=== PATIENT | male | born 1950 | race Caucasian/White ===

== ENCOUNTER 2021-10-29 10:30 | Emergency (ER) | payer MEDICARE, OTHER, SELFPAY ==
[2021-10-29] VITALS (15 sets, daily range): BP systolic 127–162; BP diastolic 66–87; PULSE 55–71; RESP 10–18; TEMP 36.5–36.7; O2SAT 91–100; BMI 24.5
--- NOTE | 2021-10-29 10:40 | DI.RAD.S_ITS ---
PROCEDURE: XR CHEST 1V INDICATIONS: chest pain, fatigue TECHNIQUE: One view of the chest was acquired. COMPARISON: None. FINDINGS: Surgical changes and devices: None. Lungs and pleura: Lungs are clear. No pleural effusions or pneumothorax. Mediastinum: Mediastinal contours appear normal. Heart size is normal. Bones and chest wall: No suspicious bony lesions. Overlying soft tissues appear unremarkable. IMPRESSION: No acute cardiopulmonary findings Approved by: Pankaj Reid M.D. on 10/29/2021 at 10:29
--- NOTE | 2021-10-29 10:40 | DI.CT.S_ITS ---
PROCEDURE: CT HEAD/BRAIN WO CON INDICATIONS: facial, arm numbness, tingling TECHNIQUE: Noncontrast 4.5 mm thick angled axial sections acquired from the foramen magnum to the vertex, with coronal and sagittal reformats. For radiation dose reduction, the following was used: automated exposure control, adjustment of mA and/or kV according to patient size. COMPARISON: [facility], CT, HEAD WITHOUT CONTRAST, 07/08/2014, 18:21. FINDINGS: Image quality: Excellent. CSF spaces: Basal cisterns are patent. No extra-axial fluid collections. The ventricles are symmetric in size and shape. Brain: No intracranial bleeds or masses. There is cerebral volume loss for age, with resultant ventricular and sulcal prominence. There are periventricular and deep white matter chronic small vessel ischemic changes. There is intracranial internal carotid artery atherosclerosis. Skull and face: Calvarium and visualized facial bones appear intact, without suspicious lesions. Sinuses: Visualized sinuses and mastoids are clear. IMPRESSION: Mild atrophy and chronic ischemic change without acute hemorrhage or mass effect. Approved by: Pankaj Reid M.D. on 10/29/2021 at 10:42
[2021-10-29 10:51] LABS: Add Manual Diff / Slide Review NO; Basophils Absolute Auto 100 /uL (0-100); Basophils Percent Auto 1.1 % (0-2); Eosinophils Absolute Auto 200 /uL (0-450); Hematocrit 38.4 % (41-53); Hemoglobin 13.5 g/dL (13.5-17.5); Lymphocytes Absolute Auto 2200 /uL (1100-4500); Lymphocytes Percent Auto 28.5 % (25-40); Mean Corpuscular HGB Conc 35.3 % (30-36); Mean Corpuscular Volume 82.3 fL (80-100); Monocytes Absolute Auto 600 /uL (0-900); Monocytes Percent Auto 7.9 % (3-14); Neutrophils Absolute Auto 4700 /uL (1500-7000); Neutrophils Percent Auto 60.5 % (50-75); Platelet Count 194 X10^3/uL (150-400); Red Blood Cell Count 4.66 X10^6/uL (4.5-5.9); Red Cell Distribution Width 14.4 % (11.6-14.8); White Blood Cell Count 7.8 X10^3/uL (4.5-11.0)
[2021-10-29] MEDS: SODIUM CHLORIDE 0.9% 1,000 ML 150 ML IV (10:58)
[2021-10-29] MEDS: ASPIRIN 81 MG CHEW TAB 324 MG PO (10:58)
--- NOTE | 2021-10-29 11:04 | ED.CHESTPAIN ---
HPI - Chest Pain General Chief Complaint: Chest Pain Stated Complaint: blood pressure/rapid pulse/swelling in neck Time Seen by Provider: 10/29/21 10:35 Source: patient Mode of arrival: Ambulatory Limitations: no limitations History of Present Illness HPI narrative: 71-year-old male nonsmoker without chronic medical problems presents with a chief complaint of persistent chest pain for many days, some numbness and tingling across the right side of his chest, right lip and upper eyelid for least 1-2 days. He is not dizzy nor weak or lightheaded. He states that he has been having episodes of elevated blood pressure as high as the 180s with rapid drops into the 90s. He states that often when his blood pressure is low he becomes dizzy upon standing Related Data Previous Rx's Medication Instructions Recorded cephalexin 500 mg capsule (Keflex) 500 mg PO QID #20 cap 09/10/17 Allergies Allergy/AdvReac Type Severity Reaction Status Date / Time alcohol [ALCOHOL] Allergy Intermediate Unverified 02/21/18 12:29 Review of Systems Review of Systems Narrative: GENERAL: D see HPI. HEENT: Denies sinus pain, ear pain, sore throat, difficulty swallowing, dizziness. RESPIRATORY: Denies dyspnea, cough, wheezing, hemoptysis, sputum. CARDIOVASCULAR: See HPI a, GASTROINTESTINAL: Denies nausea, vomiting, abdominal pain, diarrhea, constipation, melena. : Denies dysuria, frequency, incontinence, hematuria, urinary retention. MUSCULOSKELETAL: denies weakness, joint pain, or bony pain SKIN: Denies rash, skin lesions, or other NEUROLOGIC: See HPI PSYCHIATRIC: No concerning psychosocial issues. 12 point review of systems is negative except for those stated above Patient History Social History Smoking Status: Never smoker Smoking Status: Never smoker alcohol intake frequency: 0-2 drinks per day Substance Use Type: marijuana Exam Narrative Exam Narrative: GENERAL: [71] year old patient appears stated age. Well-developed patient, in mild distress. HEAD: Atraumatic. Normocephalic. EYES: Pupils equal round and reactive. Extraocular motions intact. No scleral icterus. No injection or drainage. ENT: Nose without bleeding, purulent drainage. Throat without erythema, tonsillar hypertrophy or exudate. Airway patent. NECK: Trachea midline. Non tender CARDIOVASCULAR: Regular rate and rhythm without murmurs, gallops, or rubs. RESPIRATORY: Clear to auscultation. Breath sounds equal bilaterally. No wheezes, rales, or rhonchi. GASTROINTESTINAL: Abdomen soft, non-tender, nondistended. EXTREMITIES: No edema or joint tenderness. BACK: Nontender without deformity or crepitance. No flank tenderness. NEURO: AOx3. SKIN: No rash or erythema of visible areas NIH Stroke Scale 1a. LOC: Patient is alert and keenly responsive (0) 1b. LOC Questions: Patient answers both LOC questions accurately (0) 1c. LOC Commands: Patient performs both tasks correctly (0) 2. Best Gaze: Normal (0) 3. Visual: No visual loss (0) 4. Facial palsy: Normal symmetrical movements (0) 5. Motor arm: No drift (0) 6. Motor leg: No drift (0) 7. Limb ataxia: Absent (0) 8. Sensory: Normal (0) 9. Best language: No aphasia; normal (0) 10. Dysarthria: Normal (0) 11. Extinction and inattention: No abnormality (0) NIHSS: 0 Initial Vital Signs Initial Vital Signs: Vital Signs Temperature 98.1 F 10/29/21 10:35 Pulse Rate 67 10/29/21 10:35 Respiratory Rate 18 10/29/21 10:35 Blood Pressure 162/87 H 10/29/21 10:35 Pulse Oximetry 99 10/29/21 10:35 Course Orders Ordered: ED Orders 10/29/21 10:40 CT head/brain wo con Stat XR chest 1V Stat EKG-12 Lead Stat 10/29/21 10:45 Complete Blood Count AUTO DIFF Stat Comprehensive Metabolic Panel Stat D Dimer Stat Lipase Stat NT-proBNP (BNP-Adult 18+) Stat Prothrombin Time INR Stat Troponin & CK Cardiac Panel Stat 10/29/21 11:55 CT angio head and neck Stat Sodium Chloride (Normal Saline 0.9%) 1,000 mls @ 150 mls/hr IV CONT ALAN Last Admin: 10/29/21 10:58 Dose: 150 mls/hr Documented by: MJ Discontinued Medications Aspirin (Aspirin 81 Mg Chew Tab) 324 mg PO NOW ONE Stop: 10/29/21 10:41 Last Admin: 10/29/21 10:58 Dose: 324 mg Documented by: MJ Vital Signs Vital signs: Vital Signs - 8 hr 10/29/21 10:35 10/29/21 10:43 10/29/21 10:45 Temperature 98.1 F Pulse Rate 67 71 68 Respiratory Rate 18 14 Blood Pressure 162/87 H 134/66 Pulse Oximetry 99 99 100 10/29/21 11:06 10/29/21 11:15 10/29/21 11:30 Temperature Pulse Rate 66 62 59 L Respiratory Rate 12 13 Blood Pressure Pulse Oximetry 99 100 99 10/29/21 11:45 10/29/21 12:02 10/29/21 12:03 Temperature Pulse Rate 55 L 61 Respiratory Rate 14 17 Blood Pressure 141/86 H Pulse Oximetry 98 91 99 10/29/21 12:15 10/29/21 12:30 10/29/21 12:45 Temperature Pulse Rate 66 56 L 61 Respiratory Rate 10 L 15 15 Blood Pressure 139/83 135/82 139/87 Pulse Oximetry 100 99 99 10/29/21 13:00 10/29/21 13:15 10/29/21 13:16 Temperature 97.7 F Pulse Rate 58 L 63 Respiratory Rate 13 Blood Pressure 133/84 127/79 Pulse Oximetry 100 99 MDM - Chest Pain Lab Data Result diagrams: 10/29/21 10:45 10/29/21 10:45 Labs: Lab Results 10/29/21 10/29/21 10/29/21 Range/Units 10:45 10:45 10:45 WBC 7.8 (4.5-11.0) X10^3/uL RBC 4.66 (4.5-5.9) X10^6/uL Hgb 13.5 (13.5-17.5) g/dL Hct 38.4 L (41-53) % MCV 82.3 (80-100) fL MCH 29.0 (26-34) PG MCHC 35.3 (30-36) % RDW 14.4 (11.6-14.8) % Plt Count 194 (150-400) X10^3/uL Neut % (Auto) 60.5 (50-75) % Lymph % (Auto) 28.5 (25-40) % [place] % (Auto) 7.9 (3-14) % Eos % (Auto) 2.0 (2-4) % Baso % (Auto) 1.1 (0-2) % Neut # (Auto) 4700 (8524-0599) /uL Lymph # (Auto) 2200 (5573-7222) /uL [place] # (Auto) 600 (0-900) /uL Eos # (Auto) 200 (0-450) /uL Baso # (Auto) 100 (0-100) /uL PT 11.9 (10.1-12.7) SECONDS INR 1.1 (0.9-1.3) D-Dimer < 200 (<230) ng/mL Sodium 141 (137-145) mmol/L Potassium 3.6 (3.4-5.1) mmol/L Chloride 104 (98-107) mmol/L Carbon Dioxide 30 (22-32) mmol/L BUN 22 H (9-20) mg/dL Creatinine 1.12 (0.66-1.25) mg/dL Estimated GFR > 60.0 (>60) mL/min BUN/Creatinine Ratio 19.6 (6-22) Glucose 79 L (80-110) mg/dL Calcium 9.2 (8.4-10.2) mg/dL Total Bilirubin 0.6 (0.2-1.3) mg/dL AST 28 (17-59) IU/L ALT 20 (<50) IU/L Alkaline Phosphatase 61 (38-126) U/L Total Creatine Kinase 207 H (55-170) U/L CK-MB (CK-2) 2.45 H (<2.37) ng/mL CK-MB (CK-2) Rel Index 1.2 L (1.5-5.0) % Troponin I < 0.012 (0.01-0.034) ng/mL NT-Pro-B Natriuret Pep 59 (<125) pg/mL Total Protein 7.6 (6.3-8.2) g/dL Albumin 4.6 (3.5-5.0) g/dL Globulin 3.0 (1.7-4.1) g/dL Albumin/Globulin Ratio 1.5 (1.0-2.8) Lipase 83 (23-300) U/L Imaging Data Head / Neck: Radiologist's Impression: Launch?[address] [address] [address] Scan Report Signed Patient: Brandon Siu MR#: [id number] : 1950 Acct:[id number] Age/Sex: 71 / M Date of Service: 10/29/21 Loc: ED Accession Number: [id number] ?? Procedure: CT angio head and neck Ordering Provider: Austin Ramos D.O. PROCEDURE:? CT ANGIO HEAD AND NECK ? INDICATIONS:? right head, face, numbness and tingling, pain in right anter ? TECHNIQUE:? After the administration of intravenous contrast, 1 mm thick sections acquired from the aortic arch through the [place].? Post-contrast 4.5 mm thick sections then re-acquired from the foramen magnum to the vertex.? 3-dimensional aejvyci-fjygsndvt-zeytdoaced (MIP) and/or volume rendering reformats were acquired of the central intracranial vasculature and neck separately. ? COMPARISON:? None. ? FINDINGS:? Image quality:? Excellent.? ? BRAIN:? CSF spaces:? Ventricles are normal in size and shape.? Basal cisterns are patent.? No extra-axial fluid collections.? ? Brain:? No midline shift.? No intracranial bleeds or masses.? Verma-white matter interface appears intact.? ? Skull and face:? Calvarium and facial bones appear intact, without suspicious lesions.? Orbits appear normal.? ? Sinuses:? Sinuses and mastoids are clear.? ? HEAD CT ANGIOGRAPHY:? Anterior circulation:? Intracranial internal carotid arteries are normal in size and flow.? The flow within the paired anterior cerebral arteries is normal and symmetric.? The flow within the middle cerebral arteries is normal and symmetric.? The anterior communicating artery is seen.? No aneurysms are seen.? ? Posterior circulation:? Visualized portions of the vertebral arteries demonstrate normal caliber, and join to form a normal appearing basilar artery.? Flow within the posterior cerebral arteries is normal and symmetric.? No aneurysms are seen.? ? NECK CT ANGIOGRAPHY:? Carotid system:? The great vessels demonstrate a conventional anatomy as they arise from the aortic arch.? The origins of the common carotid arteries appear patent.? The common carotid arteries demonstrate normal caliber and courses.? The bifurcation regions are both widely patent.? The internal carotid arteries demonstrate normal calibers and courses.? ? Posterior circulation:? The origins of the vertebral arteries both appear widely patent.? The more superior extracranial portions of both vertebral arteries also demonstrate normal courses and calibers.? They join to form a normal appearing basilar artery.? ? Soft tissues:? Visualized neck soft tissues demonstrate no suspicious abnormalities.? ? Bones:? No suspicious bony lesions.? Visualized cervical spine appears normally aligned.? IMPRESSION:? No hemodynamically significant stenosis of the major intracranial or extracranial arterial circulation. ? Any quantitative measurements of stenosis were performed using NASCET criteria.? ? ? Dictated by: Abner Valera M.D. on 10/29/2021 at 13:01 ? ? Approved by: Abner Valera M.D. on 10/29/2021 at 13:04 ? MDM Narrative Medical decision making narrative: Multiple etiologies for patient's symptoms considered including: [Coronary artery disease, thought unlikely given lack of exertional provocation, radiation, nausea, vomiting, diaphoresis or other red flag symptoms. Additionally, EKG is nonischemic and troponin is unremarkable. Pulmonary embolism considered but thought unlikely given negative D-dimer, no imaging indicated. Patient asymptomatic for majority of visit. Stroke and intracranial hemorrhage are considered but thought unlikely given lack of ongoing symptoms or findings on imaging. It seems likely that his symptoms are related to fluctuations in his blood pressure, at times elevated at other times low. There is no indication for an antihypertensive approach at this point time. He shows no signs of sepsis or infection. Patient already has an appointment set up with his primary care provider later this week Patient's symptoms improved over duration of stay with above-stated therapies. Findings and discharge diagnosis discussed with patient/family followed by verbalization of understanding Return precautions discussed with patient/family whom verbalize understanding. Discharge Plan Departure Patient Disposition: Home Clinical Impression: Atypical chest pain, Dizziness Instructions: DI for Atypical Chest Pain, DI for Dizziness-Nonvertigo Activity Restrictions/Additional Instructions: *You have been diagnosed with [atypical chest pain and dizziness. Your history, physical exam, EKG, labs and imaging are very reassuring. There is no evidence of stroke, significant narrowing of carotids, heart attack or blood clot. *What to do: *Please continue to take your regular medications as directed. [ ] New medication prescriptions sent to your pharmacy: [ ] [ ] New medication written as a paper prescription [ x] No new medications given *Please follow up with your primary care provider in 2-3 days, call for an appointment. Let them know you were seen in the Emergency Department and that we ask that you be seen in follow up. We will electronically transmit a record of today's note if your PCP is in our system *If you do not have a primary care provider please contact the [facility] Resource line at [phone]. They will ask some questions about your medical history and help get you set up with a doctor in the community. *Return to Emergency Department if you should have any new, worsening or concerning symptoms, such as [fever greater than 101 F, shaking chills, worsening pain, persistent vomiting or other bothersome symptoms] Prescriptions: No Action cephalexin [Keflex] 500 MG capsule 500 mg PO QID Qty: 20 0RF Referrals: Devika Phoenix MD [Primary Care Provider] -
[2021-10-29 11:05] LABS: Alanine Aminotransferase 20 IU/L (<50); Albumin 4.6 g/dL (3.5-5.0); Albumin Globulin Ratio 1.5 (1.0-2.8); Alkaline Phosphatase 61 U/L (38-126); Aspartate Aminotransferase 28 IU/L (17-59); BUN Creatinine Ratio 19.6 (6-22); Bilirubin Total 0.6 mg/dL (0.2-1.3); Blood Urea Nitrogen 22 mg/dL (9-20); Calcium 9.2 mg/dL (8.4-10.2); Carbon Dioxide 30 mmol/L (22-32); Chloride 104 mmol/L (98-107); Creatine Kinase 207 U/L (55-170); Estimated Glomerular Filt Rate > 60.0 mL/min (>60); Glucose 79 mg/dL (80-110); HEMOLYSIS < 15 (0-50); Lipase 83 U/L (23-300); Potassium 3.6 mmol/L (3.4-5.1); Sodium 141 mmol/L (137-145); Total Protein 7.6 g/dL (6.3-8.2)
[2021-10-29 11:14] LABS: INR 1.1 (0.9-1.3); Prothrombin Time 11.9 SECONDS (10.1-12.7)
[2021-10-29 11:17] LABS: NT-proBNP (BNP-Adult 18+) 59 pg/mL (<125); Troponin I < 0.012 ng/mL (0.01-0.034)
[2021-10-29 11:21] LABS: CKMB % Relative Index 1.2 % (1.5-5.0); Creatine Kinase MB 2.45 ng/mL (<2.37)
[2021-10-29 11:26] LABS: D Dimer < 200 ng/mL (<230)
--- NOTE | 2021-10-29 11:55 | DI.CT.S_ITS ---
PROCEDURE: CT ANGIO HEAD AND NECK INDICATIONS: right head, face, numbness and tingling, pain in right anter TECHNIQUE: After the administration of intravenous contrast, 1 mm thick sections acquired from the aortic arch through the [place]. Post-contrast 4.5 mm thick sections then re-acquired from the foramen magnum to the vertex. 3-dimensional fytfuzf-zjlxihmqr-yyzxgqsvin (MIP) and/or volume rendering reformats were acquired of the central intracranial vasculature and neck separately. COMPARISON: None. FINDINGS: Image quality: Excellent. BRAIN: CSF spaces: Ventricles are normal in size and shape. Basal cisterns are patent. No extra-axial fluid collections. Brain: No midline shift. No intracranial bleeds or masses. Verma-white matter interface appears intact. Skull and face: Calvarium and facial bones appear intact, without suspicious lesions. Orbits appear normal. Sinuses: Sinuses and mastoids are clear. HEAD CT ANGIOGRAPHY: Anterior circulation: Intracranial internal carotid arteries are normal in size and flow. The flow within the paired anterior cerebral arteries is normal and symmetric. The flow within the middle cerebral arteries is normal and symmetric. The anterior communicating artery is seen. No aneurysms are seen. Posterior circulation: Visualized portions of the vertebral arteries demonstrate normal caliber, and join to form a normal appearing basilar artery. Flow within the posterior cerebral arteries is normal and symmetric. No aneurysms are seen. NECK CT ANGIOGRAPHY: Carotid system: The great vessels demonstrate a conventional anatomy as they arise from the aortic arch. The origins of the common carotid arteries appear patent. The common carotid arteries demonstrate normal caliber and courses. The bifurcation regions are both widely patent. The internal carotid arteries demonstrate normal calibers and courses. Posterior circulation: The origins of the vertebral arteries both appear widely patent. The more superior extracranial portions of both vertebral arteries also demonstrate normal courses and calibers. They join to form a normal appearing basilar artery. Soft tissues: Visualized neck soft tissues demonstrate no suspicious abnormalities. Bones: No suspicious bony lesions. Visualized cervical spine appears normally aligned. IMPRESSION: No hemodynamically significant stenosis of the major intracranial or extracranial arterial circulation. Any quantitative measurements of stenosis were performed using NASCET criteria. Dictated by: Abner Valera M.D. on 10/29/2021 at 13:01 Approved by: Abner Valera M.D. on 10/29/2021 at 13:04
== END 2021-10-29 13:35 | disposition home or self-care (01) ==
PROVIDERS: Emergency Provider Emergency Medicine; PCP Family Medicine
DX: R07.89 Other chest pain (principal); R42 Dizziness and giddiness
CPT/HCPCS: 36415; 70450; 70496; 70498; 71045; 80053; 82550; 82553; 83690; 83880; 84484; 85025; 85379; 85610; 93005; 93010; 96360; 96361; 99284

== ENCOUNTER 2022-09-10 09:22 | Emergency (ER) | payer MEDICARE, OTHER, SELFPAY ==
[2022-09-10 09:27] VITALS: BP 171/88; PULSE 73; RESP 15; TEMP 36.3; O2SAT 99; BMI 23.1
--- NOTE | 2022-09-10 09:30 | DI.RAD.S_ITS ---
PROCEDURE: XR CHEST 1V INDICATIONS: chest pain TECHNIQUE: One view of the chest was acquired. COMPARISON: [facility], CR, XR CHEST 1V, 10/29/2021, 10:51. FINDINGS: Surgical changes and devices: None. Lungs and pleura: Lungs are clear. No pleural effusions or pneumothorax. Mediastinum: Mediastinal contours appear normal. Heart size is normal. Bones and chest wall: No suspicious bony lesions. Overlying soft tissues appear unremarkable. IMPRESSION: No acute cardiopulmonary abnormality. Dictated by: Law Tony M.D. on 09/10/2022 at 9:05 Approved by: Law Tony M.D. on 09/10/2022 at 9:05
[2022-09-10 10:07] LABS: Add Manual Diff / Slide Review NO; Basophils Absolute Auto 100 /uL (0-100); Eosinophils Absolute Auto 200 /uL (0-450); Eosinophils Percent Auto 3.8 % (2-4); Hematocrit 40.3 % (41-53); Lymphocytes Absolute Auto 1800 /uL (1100-4500); Lymphocytes Percent Auto 32.4 % (25-40); Mean Corpuscular HGB Conc 34.7 % (30-36); Mean Corpuscular Hemoglobin 28.9 PG (26-34); Mean Corpuscular Volume 83.4 fL (80-100); Monocytes Absolute Auto 400 /uL (0-900); Monocytes Percent Auto 7.6 % (3-14); Neutrophils Absolute Auto 3100 /uL (1500-7000); Neutrophils Percent Auto 55.2 % (50-75); Platelet Count 197 X10^3/uL (150-400); Red Blood Cell Count 4.83 X10^6/uL (4.5-5.9); White Blood Cell Count 5.6 X10^3/uL (4.5-11.0)
[2022-09-10 10:17] LABS: INR 1.1 (0.9-1.3); Prothrombin Time 12.3 SECONDS (10.1-12.7)
[2022-09-10 10:19] LABS: PTT Partial Thromboplastin Tim 32 SECONDS (26-36)
[2022-09-10 10:21] VITALS: BP 173/111; PULSE 71; O2SAT 99
--- NOTE | 2022-09-10 10:23 | ED.ARRPALP ---
HPI - Arrhythmia/Palpitations General Chief Complaint: Arrhythmia/Palpitations Stated Complaint: Irregular heart beat, dizziness, Time Seen by Provider: 09/10/22 09:52 Source: patient Mode of arrival: Ambulatory History of Present Illness HPI narrative: 72-year-old male nonsmoker with history of atrial fibrillation, not anticoagulated, presents with a chief complaint of palpitations for the past 2 days. He occasionally experiences dizziness when up and about but not currently. Denies any blurred vision, trouble speech or extremity numbness, tingling or weakness. He has no chest pain but does occasionally get short of breath, seemingly more so with irregularity of his beats. He denies nausea, vomiting or diarrhea. Denies any medication or dietary change. Related Data Previous Rx's Medication Instructions Recorded cephalexin 500 mg capsule (Keflex) 500 mg PO QID #20 caps 09/10/17 Allergies Allergy/AdvReac Type Severity Reaction Status Date / Time alcohol [ALCOHOL] Allergy Intermediate Verified 09/10/22 09:27 Review of Systems Review of Systems Narrative: GENERAL: Denies chills, fatigue, malaise, fever, sweats. HEENT: Denies sinus pain, ear pain, sore throat, difficulty swallowing, dizziness. RESPIRATORY: See HPI CARDIOVASCULAR: See HPI GASTROINTESTINAL: Denies nausea, vomiting, abdominal pain, diarrhea, constipation, melena. : Denies dysuria, frequency, incontinence, hematuria, urinary retention. MUSCULOSKELETAL: denies weakness, joint pain, or bony pain SKIN: Denies rash, skin lesions, or other NEUROLOGIC: Denies weakness, headache, numbness, change in speech, confusion, seizures, incoordination. PSYCHIATRIC: No concerning psychosocial issues. 12 point review of systems is negative except for those stated above Patient History Social History Smoking Status: Never smoker Smoking Status: Never smoker alcohol intake frequency: holidays/special occasions only Substance Use Type: marijuana Exam Narrative Exam Narrative: GENERAL: [72] year old patient appears stated age. Well-developed patient, in mild distress. HEAD: Atraumatic. Normocephalic. EYES: Pupils equal round and reactive. Extraocular motions intact. No scleral icterus. No injection or drainage. ENT: Nose without bleeding, purulent drainage. Throat without erythema, tonsillar hypertrophy or exudate. Airway patent. NECK: Trachea midline. Non tender CARDIOVASCULAR: Regular rate and rhythm without murmurs, gallops, or rubs. Occasional ectopy RESPIRATORY: Clear to auscultation. Breath sounds equal bilaterally. No wheezes, rales, or rhonchi. GASTROINTESTINAL: Abdomen soft, non-tender, nondistended. EXTREMITIES: No edema or joint tenderness. BACK: Nontender without deformity or crepitance. No flank tenderness. NEURO: AOx3. SKIN: No rash or erythema of visible areas Initial Vital Signs Initial Vital Signs: Vital Signs Temperature 97.4 F L 09/10/22 09:27 Pulse Rate 73 09/10/22 09:27 Respiratory Rate 15 09/10/22 09:27 Blood Pressure 171/88 H 09/10/22 09:27 Pulse Oximetry 99 09/10/22 09:27 Oxygen Delivery Method 09/10/22 09:27 Scores CHADS-VASc Congestive heart failure: no Hypertension: no Age 75 years or older: no Diabetes mellitus: no Stroke, TIA, or TE: no Vascular disease: no Age 65 to 74 years: yes Sex category (female): Male CHADS-VASc Score: 1 Course Orders Ordered: ED Orders 09/10/22 09:30 XR chest 1V Stat 09/10/22 09:35 Complete Blood Count AUTO DIFF Stat Comprehensive Metabolic Panel Stat Lipase Stat Magnesium Stat Partial Thromboplastin Time Stat Prothrombin Time INR Stat Troponin & CK Cardiac Panel Stat 09/10/22 11:06 EKG-12 Lead Stat Reevaluation(s) Reevaluation #1: Patient continues to be asymptomatic with occasional PACs noted on monitor. Repeat EKG shows normal sinus rhythm Vital Signs Vital signs: Vital Signs - 8 hr 09/10/22 09:27 Temperature 97.4 F L Pulse Rate 73 Respiratory Rate 15 Blood Pressure 171/88 H Pulse Oximetry 99 Oxygen Delivery Method Room Air MDM - Arrhythmia/Palpitations Lab Data Result diagrams: 09/10/22 09:35 09/10/22 09:35 Labs: Lab Results 09/10/22 09/10/22 09/10/22 Range/Units 09:35 09:35 09:35 WBC 5.6 (4.5-11.0) X10^3/uL RBC 4.83 (4.5-5.9) X10^6/uL Hgb 14.0 (13.5-17.5) g/dL Hct 40.3 L (41-53) % MCV 83.4 (80-100) fL MCH 28.9 (26-34) PG MCHC 34.7 (30-36) % RDW 15.0 H (11.6-14.8) % Plt Count 197 (150-400) X10^3/uL Neut % (Auto) 55.2 (50-75) % Lymph % (Auto) 32.4 (25-40) % [place] % (Auto) 7.6 (3-14) % Eos % (Auto) 3.8 (2-4) % Baso % (Auto) 1.0 (0-2) % Neut # (Auto) 3100 (4942-9691) /uL Lymph # (Auto) 1800 (5180-6994) /uL [place] # (Auto) 400 (0-900) /uL Eos # (Auto) 200 (0-450) /uL Baso # (Auto) 100 (0-100) /uL PT 12.3 (10.1-12.7) SECONDS INR 1.1 (0.9-1.3) APTT 32 (26-36) SECONDS Sodium 141 (137-145) mmol/L Potassium 3.5 (3.4-5.1) mmol/L Chloride 105 (98-107) mmol/L Carbon Dioxide 26 (22-32) mmol/L BUN 18 (9-20) mg/dL Creatinine 0.96 (0.66-1.25) mg/dL Estimated GFR > 60 (>60) mL/min BUN/Creatinine Ratio 18.8 (6-22) Glucose 102 (80-110) mg/dL Calcium 8.8 (8.4-10.2) mg/dL Magnesium 2.1 (1.6-2.3) mg/dL Total Bilirubin 0.7 (0.2-1.3) mg/dL AST 25 (17-59) IU/L ALT 21 (<50) IU/L Alkaline Phosphatase 62 (38-126) U/L Total Creatine Kinase 113 (55-170) U/L CK-MB (CK-2) 1.96 (<2.37) ng/mL CK-MB (CK-2) Rel Index 1.7 (1.5-5.0) % Troponin I < 0.012 (0.01-0.034) ng/mL Total Protein 7.7 (6.3-8.2) g/dL Albumin 4.4 (3.5-5.0) g/dL Globulin 3.3 (1.7-4.1) g/dL Albumin/Globulin Ratio 1.3 (1.0-2.8) Lipase 58 (23-300) U/L Imaging Data Chest x-ray: Radiologist's Impresson: [address] [address] XRay Report Signed Patient: Brandon Siu MR#: [id number] : 1950 Acct:[id number] Age/Sex: 72 / M Date of Service: 09/10/22 Loc: ED Accession Number: [id number] ?? Procedure: XR chest 1V Ordering Provider: Austin Ramos D.O. PROCEDURE:? XR CHEST 1V ? INDICATIONS:? chest pain ? TECHNIQUE:? One view of the chest was acquired.? ? COMPARISON:? [facility], CR, XR CHEST 1V, 10/29/2021, 10:51. ? FINDINGS:? ? Surgical changes and devices:? None.? ? Lungs and pleura:? Lungs are clear.? No pleural effusions or pneumothorax.? ? Mediastinum:? Mediastinal contours appear normal.? Heart size is normal.? ? Bones and chest wall:? No suspicious bony lesions.? Overlying soft tissues appear unremarkable.? ? IMPRESSION:? No acute cardiopulmonary abnormality. ? ? ? Dictated by: Law Tony M.D. on 09/10/2022 at 9:05 ? ? Approved by: Law Tony M.D. on 09/10/2022 at 9:05? ECG Data Interpretation: [0942] EKG is normal sinus rhythm rate [ 70] and free of any signs of ischemia or ectopy. No ST segmental elevation or depression. No T wave inversions Discharge Plan Departure Patient Disposition: Home Clinical Impression: Palpitations, PAC (premature atrial contraction) Instructions: Arrhythmias Activity Restrictions/Additional Instructions: *You have been diagnosed with [palpitations due to premature atrial contractions. Thankfully your EKG shows no evidence of atrial fibrillation. Your labs and physical exam are very reassuring] *What to do: *Please continue to take your regular medications as directed. [ ] New medication prescriptions sent to your pharmacy: [ ] [ ] New medication written as a paper prescription [x ] No new medications given *Please follow up with your primary care provider in 2-3 days, call for an appointment. Let them know you were seen in the Emergency Department and that we ask that you be seen in follow up. We will electronically transmit a record of today's note if your PCP is in our system *If you do not have a primary care provider please contact the [facility] Resource line at [phone]. They will ask some questions about your medical history and help get you set up with a doctor in the community. *Return to Emergency Department if you should have any new, worsening or concerning symptoms, such as [fever greater than 101 F, shaking chills, worsening pain, persistent vomiting or other bothersome symptoms] Prescriptions: No Action cephalexin [Keflex] 500 MG capsule 500 mg PO QID Qty: 20 0RF Referrals: Devika Phoenix MD [Primary Care Provider] -
[2022-09-10 10:25] LABS: Alanine Aminotransferase 21 IU/L (<50); Albumin 4.4 g/dL (3.5-5.0); Albumin Globulin Ratio 1.3 (1.0-2.8); Alkaline Phosphatase 62 U/L (38-126); Aspartate Aminotransferase 25 IU/L (17-59); BUN Creatinine Ratio 18.8 (6-22); Bilirubin Total 0.7 mg/dL (0.2-1.3); Blood Urea Nitrogen 18 mg/dL (9-20); Calcium 8.8 mg/dL (8.4-10.2); Carbon Dioxide 26 mmol/L (22-32); Chloride 105 mmol/L (98-107); Creatine Kinase 113 U/L (55-170); Estimated Glomerular Filt Rate > 60 mL/min (>60); Globulin 3.3 g/dL (1.7-4.1); Glucose 102 mg/dL (80-110); HEMOLYSIS < 15 (0-50); Lipase 58 U/L (23-300); Magnesium 2.1 mg/dL (1.6-2.3); Potassium 3.5 mmol/L (3.4-5.1); Sodium 141 mmol/L (137-145); Total Protein 7.7 g/dL (6.3-8.2)
[2022-09-10 10:30] VITALS: BP 139/91; PULSE 65; RESP 14; O2SAT 99
[2022-09-10 10:35] LABS: Troponin I < 0.012 ng/mL (0.01-0.034)
[2022-09-10 10:39] LABS: CKMB % Relative Index 1.7 % (1.5-5.0); Creatine Kinase MB 1.96 ng/mL (<2.37)
[2022-09-10 11:00] VITALS: BP 144/90; PULSE 59; RESP 16; O2SAT 98
[2022-09-10 11:30] VITALS: BP 140/92; PULSE 59; RESP 16; O2SAT 98
== END 2022-09-10 11:53 | disposition home or self-care (01) ==
PROVIDERS: Emergency Provider Emergency Medicine; PCP Family Medicine
DX: R00.2 Palpitations (principal); I49.1 Atrial premature depolarization; R07.9 Chest pain, unspecified
CPT/HCPCS: 36415; 71045; 80053; 82550; 82553; 83690; 83735; 84484; 85025; 85610; 85730; 93005; 99283; 99284